=== PATIENT | male | born 1960 | race Caucasian/White ===

== ENCOUNTER → 2018-10-25 | Outpatient (CLI) | payer BC | END | disposition home or self-care (01) | LOC: CVU 15:34 | PROVIDERS: ATTEND Internal Medicine Cardiovascular Disease | DX: I35.1 Nonrheumatic aortic (valve) insufficiency (principal); I51.7 Cardiomegaly | CPT/HCPCS: 93306 ==

== ENCOUNTER → 2019-04-21 | Outpatient (CLI) | payer BC | END | disposition home or self-care (01) | LOC: CFH 08:43 | PROVIDERS: ATTEND Internal Medicine Cardiovascular Disease | DX: I35.1 Nonrheumatic aortic (valve) insufficiency (principal); I10 Essential (primary) hypertension; E78.5 Hyperlipidemia, unspecified | CPT/HCPCS: 93306 ==

== ENCOUNTER 2020-02-19 12:01 | Inpatient (IN) | payer BC ==
[~2020-02-19] VITALS: Ht 172.7 cm; Wt 75.0 kg
[2020-02-19] MEDS ORDERED: SODIUM CHLORIDE 0.9% 1,000ML IVBOLUS ONE (12:30)
[2020-02-19] MEDS ORDERED: ADENOSINE 6 MG/2 ML IVPush ONE ×2 (12:30)
[2020-02-19] MEDS ORDERED: SODIUM CHLORIDE FLUSH 10ML SYR IVF ONE (12:30)
[2020-02-19] MEDS ORDERED: DILTIAZEM 5 MG/ML, 5ML ONE ×2 (12:30→12:45)
[2020-02-19] MEDS ORDERED: DILTIAZEM 5 MG/ML, 5ML IV ONE (12:30)
[2020-02-19 12:39] LABS: BASOPHILS # (AUTO) 0.03 x10^3/uL (0-0.1); BASOPHILS % (AUTO) 1 % (0-1); EOSINOPHILS # (AUTO) 0.03 x10^3/uL (0-0.4); EOSINOPHILS % (AUTO) 0 % (1-7); LYMPHOCYTES # (AUTO) 1.37 x10^3/uL (1-3.4); LYMPHOCYTES % (AUTO) 20 % (22-44); MD NO; MEAN CORPUSCULAR HEMOGLOBIN 34.9 pg (27.5-34.5); MEAN CORPUSCULAR VOLUME 102.6 fL (81-97); MEAN PLATELET VOLUME 8.6 fL (7.4-10.4); MONOCYTES # (AUTO) 0.81 x10^3/uL (0.2-0.8); MONOCYTES % (AUTO) 12 % (2-9); NEUTROPHILS # (AUTO) 4.72 x10^3/uL (1.8-6.8); NEUTROPHILS % (AUTO) 68 % (42-75); PLATELET COUNT 197 x10^3/uL (130-400); RED BLOOD COUNT 4.19 x10^6/uL (4.38-5.82); RED CELL DISTRIBUTION WIDTH 13.3 % (9.4-14.8)
[2020-02-19 12:51] LABS: INTERNATIONAL NORMALIZED RATIO 1.09 (0.93-1.1); PROTHROMBIN TIME 11.2 Seconds (9.6-11.5)
[2020-02-19 12:53] LABS: ALBUMIN 4.2 g/dL (3.4-5.0); ANION GAP 10 mmol/L (5-15); CALCIUM 10.8 mg/dL (8.5-10.1); CHLORIDE 102 mmol/L (98-107)
[2020-02-19 12:56] LABS: ALANINE AMINOTRANSFERASE 88 U/L (12-78); ALKALINE PHOSPHATASE 60 U/L (45-117); BILIRUBIN,TOTAL 1.8 mg/dL (0.2-1.0); CREATININE 1.04 mg/dL (0.7-1.3); TOTAL PROTEIN 8.5 g/dL (6.4-8.2)
[2020-02-19] MEDS ORDERED: DILTIAZEM 5 MG/ML, 5ML IVPush ONE ×2 (13:00→13:30)
[2020-02-19] MEDS ORDERED: DILTIAZEM 60 MG TABLET PO ONE (13:00)
--- NOTE | 2020-02-19 13:08 | NUR ---
summary of events. pt taken to room via wheelchair. iv access obtained x 2. labs drawn from start. pt placed on all monitoring equipment with code cart at bedside. 6 mg adenosine given with no change. 12 mg adenosine given rhythm slowed and md was able to see flutter waves. 20 mg cardizem admin. hr slowed for approx 4 minutes before rising back up to 140-150. md made aware. 10 mg of cardizem admin iv and 60 mg po to be admin.
[2020-02-19] MEDS ORDERED: DILT120T PO (13:39)
[2020-02-19] MEDS ORDERED: ATOR10TA9 PO (13:39)
[2020-02-19] MEDS ORDERED: METO25TA35 PO (13:39)
[2020-02-19] MEDS ORDERED: OLME20TA17 PO (13:40)
[2020-02-19] MEDS: DILTIAZEM 125 MG in SODIUM CHLORIDE 0.9% 100 ML IV SCH ×2 (13:58→15:30)
--- NOTE | 2020-02-19 14:05 | NUR ---
in room to discuss poc. at this time it is determined the best poc is to admit pt. pt agrees with poc at this time. per md ok to initiate cardizem drip per order.
--- NOTE | 2020-02-19 14:52 | NUR ---
TASK RN: REPORT GIVEN TO SAIGE MEADE. PT RTG TO ROOM [id number]
[2020-02-19] MEDS ORDERED: ENOXAPARIN 40 MG/0.4 ML SQ SCH (15:00)
[2020-02-19] MEDS ORDERED: LABETALOL 5MG/ML, 20ML IVPush PRN (15:00)
[2020-02-19] MEDS ORDERED: DILTIAZEM 60 MG TABLET PO SCH (15:00)
[2020-02-19] MEDS ORDERED: ACETAMINOPHEN 325 MG TABLET PO PRN (15:00)
[2020-02-19] MEDS ORDERED: TEMAZEPAM 15 MG CAPSULE PO PRN (15:00)
[2020-02-19] MEDS ORDERED: ONDANSETRON 2MG/ML, 2ML IVPush PRN (15:00)
[2020-02-19] MEDS ORDERED: DOCUSATE 100 MG CAPSULE PO PRN (15:00)
[2020-02-19] MEDS ORDERED: HYDROcodone/APAP 5/325 TABLET PO PRN (15:00)
[2020-02-19] MEDS ORDERED: ENALAPRILAT 1.25 MG/ML, 2ML IVPush PRN (15:00)
[2020-02-19] MEDS ORDERED: morphine SULFATE 10 MG/ML, 1ML IVPush PRN (15:00)
[2020-02-19] MEDS ORDERED: ADENOSINE 6 MG/2 ML ONE (15:00)
[2020-02-19] MEDS ORDERED: HEPARIN 5,000 UNITS/ML, 1ML IV ONE ×2 (16:00)
[2020-02-19] MEDS ORDERED: HEPARIN 5,000 UNITS/ML, 1ML IV PRN ×2 (16:00)
[2020-02-19] MEDS ORDERED: HEPARIN 25,000 UNITS/250ML PMX 250 ML IV PRN ×2 (16:00)
[2020-02-19 18:06] VITALS: BP 141/72
[2020-02-19] MEDS ORDERED: ZOLPIDEM 5MG TABLET PO PRN (18:30)
[2020-02-19 19:11] VITALS: BP 105/65
[2020-02-19] MEDS ORDERED: ATORVASTATIN 10 MG TABLET PO SCH (21:00)
[2020-02-19] MEDS: METOPROLOL TARTRATE 25 MG TAB PO SCH (21:10)
[2020-02-19] MEDS ORDERED: MAGNESIUM SULFATE PMX 2GM/50ML 50 ML IV ONE (21:30)
[2020-02-20 01:29] VITALS: BP 109/61
[2020-02-20 05:29] LABS: CHLORIDE 106 mmol/L (98-107)
[2020-02-20 05:35] LABS: ALANINE AMINOTRANSFERASE 65 U/L (12-78); ALBUMIN 3.3 g/dL (3.4-5.0); ALKALINE PHOSPHATASE 43 U/L (45-117); ANION GAP 11 mmol/L (5-15); BILIRUBIN,TOTAL 1.7 mg/dL (0.2-1.0); CALCIUM 9.1 mg/dL (8.5-10.1); CREATININE 0.91 mg/dL (0.7-1.3); TOTAL PROTEIN 6.8 g/dL (6.4-8.2)
[2020-02-20 05:59] LABS: MEAN CORPUSCULAR HEMOGLOBIN 34.7 pg (27.5-34.5); MEAN CORPUSCULAR HGB CONC 33.6 g/dL (33.2-36.2); MEAN CORPUSCULAR VOLUME 103.3 fL (81-97); MEAN PLATELET VOLUME 8.6 fL (7.4-10.4); PLATELET COUNT 147 x10^3/uL (130-400); RED BLOOD COUNT 3.44 x10^6/uL (4.38-5.82); RED CELL DISTRIBUTION WIDTH 13.6 % (9.4-14.8)
[2020-02-20 06:24] LABS: BASOPHILS # (AUTO) 0.04 x10^3/uL (0-0.1); BASOPHILS % (AUTO) 1 % (0-1); EOSINOPHILS # (AUTO) 0.08 x10^3/uL (0-0.4); EOSINOPHILS % (AUTO) 2 % (1-7); LYMPHOCYTES # (AUTO) 2.21 x10^3/uL (1-3.4); LYMPHOCYTES % (AUTO) 43 % (22-44); MD SCAN; MONOCYTES # (AUTO) 0.74 x10^3/uL (0.2-0.8); MONOCYTES % (AUTO) 14 % (2-9); NEUTROPHILS # (AUTO) 2.13 x10^3/uL (1.8-6.8); NEUTROPHILS % (AUTO) 41 % (42-75)
[2020-02-20 07:50] VITALS: BP 111/67
[2020-02-20] MEDS ORDERED: DILTIAZEM HCL 120 MG PO SCH (09:00)
[2020-02-20] MEDS ORDERED: DILTIAZEM 60 MG TABLET PO SCH (09:00)
[2020-02-20] MEDS ORDERED: MAGNESIUM OXIDE 400 MG TABLET PO SCH (09:00)
[2020-02-20] MEDS ORDERED: LOSARTAN 100 MG TAB PO SCH (09:00)
[2020-02-20] MEDS ORDERED: METOPROLOL TARTRATE 25 MG TAB PO SCH ×2 (09:00→21:00)
[2020-02-20] MEDS: METOPROLOL TARTRATE 25 MG TAB PO SCH (09:07)
[2020-02-20] MEDS ORDERED: METOPROLOL TARTRATE 25 MG TAB ONE (10:59)
[2020-02-20] MEDS ORDERED: APIXABAN 5 MG TABLET ONE (10:59)
[2020-02-20] MEDS ORDERED: APIXABAN 5 MG TABLET PO SCH (11:00)
[2020-02-20] MEDS ORDERED: METOPROLOL TARTRATE 25 MG TAB PO ONE (11:00)
[2020-02-20] MEDS ORDERED: DILTIAZEM 125 MG in SODIUM CHLORIDE 0.9% 100 ML IV SCH (13:00)
[2020-02-20] MEDS ORDERED: METO25TA35 PO (14:26)
[2020-02-20] MEDS ORDERED: LOSA100T2 PO (14:26)
[2020-02-20] MEDS ORDERED: APIX5TAB PO (14:26)
[2020-02-20 15:00] VITALS: BP 116/80
[2020-02-20] MEDS ORDERED: DILT120C64 PO (16:02)
[2020-02-20 16:42] VITALS: BP 116/80
== END 2020-02-20 17:16 | disposition home or self-care (01) | DRG 309 ==
LOC: ED 12:47 → 5SO 15:12
PROVIDERS: ADMIT Internal Medicine; ATTEND Internal Medicine
PROC: 5A2204Z Restoration of Cardiac Rhythm, Single (ICD-10-PCS; principal; 2020-02-19)
DX: I48.92 Unspecified atrial flutter (principal); E87.1 Hypo-osmolality and hyponatremia; I44.1 Atrioventricular block, second degree; I10 Essential (primary) hypertension; E83.42 Hypomagnesemia; E83.52 Hypercalcemia; E86.0 Dehydration; I35.1 Nonrheumatic aortic (valve) insufficiency; I48.19 Other persistent atrial fibrillation; Z82.49 Family history of ischemic heart disease and other diseases of the circulatory system; Z88.2 Allergy status to sulfonamides
CPT/HCPCS: 36415; 71045; 80053; 83735; 84100; 84443; 85025; 85520; 85610; 85730; 93005; 93306; G0378; J0153; J1644; J3475; J7030

== ENCOUNTER → 2020-03-30 | Outpatient (CLI) | payer BC ==
[~2020-03-30] MED LIST: APIX5TAB PO; ATOR10TA9 PO; CETI10CA PO; CHOL10003 PO; DILT120C64 PO; DILT120T PO; ETAN50DI2 SC; FOLI0.4T2 PO; LOSA100T2 PO; MAGN300C PO; METH4TAB2 PO; METO25TA35 PO; NAPR-856 PO; OLME20TA17 PO; OMEG-118 PO; VITA1CAP PO; [UNRECOGNIZED DRUG - SUPPLY]
== END | disposition home or self-care (01) ==
LOC: STAR 09:31
PROVIDERS: ATTEND Anesthesiology
DX: Z01.812 Encounter for preprocedural laboratory examination (principal); Z20.828 Contact with and (suspected) exposure to other viral communicable diseases
CPT/HCPCS: 36415; 87635

== ENCOUNTER 2020-04-01 11:04 | Observation (INO) | payer BC ==
[~2020-04-01] VITALS: Ht 172.7 cm; Wt 79.5 kg
[~2020-04-01 11:04] MED LIST changes: -METH4TAB2 PO; -[UNRECOGNIZED DRUG - SUPPLY]
[2020-04-01 11:52] VITALS: BP 141/70
[2020-04-01] MEDS ORDERED: SODIUM CHLORIDE 0.9% 1,000 ML IV SCH (12:00)
[2020-04-01] MEDS ORDERED: SODIUM CHLORIDE 0.9% 1,000 ML IV ONE (12:00)
[2020-04-01] MEDS ORDERED: PLEASE ENTER HEIGHT AND WEIGHT MC SCH (12:00)
[2020-04-01] MEDS ORDERED: [UNRECOGNIZED DRUG - SUPPLY] (12:06)
[2020-04-01] MEDS ORDERED: METH4TAB2 PO (12:06)
[2020-04-01 12:17] LABS: BASOPHILS % (AUTO) 0 % (0-1); EOSINOPHILS % (AUTO) 0 % (1-7); LYMPHOCYTES % (AUTO) 8 % (22-44); MEAN CORPUSCULAR HEMOGLOBIN 33.6 pg (27.5-34.5); MEAN CORPUSCULAR HGB CONC 33.4 g/dL (33.2-36.2); MEAN PLATELET VOLUME 8.7 fL (7.4-10.4); MONOCYTES % (AUTO) 6 % (2-9); NEUTROPHILS % (AUTO) 87 % (42-75); PLATELET COUNT 246 x10^3/uL (130-400); RED BLOOD COUNT 4.29 x10^6/uL (4.38-5.82); RED CELL DISTRIBUTION WIDTH 12.8 % (9.4-14.8)
[2020-04-01 12:26] LABS: INTERNATIONAL NORMALIZED RATIO 1.09 (0.93-1.1); PROTHROMBIN TIME 11.2 Seconds (9.6-11.5)
[2020-04-01 12:27] LABS: ANION GAP 5 mmol/L (5-15); CALCIUM 9.8 mg/dL (8.5-10.1); CHLORIDE 102 mmol/L (98-107); CREATININE 1.07 mg/dL (0.7-1.3)
[2020-04-01] MEDS ORDERED: MIDAZOLAM 1 MG/ML, 2ML ONE (12:31)
[2020-04-01] MEDS ORDERED: FENTANYL PF 250 MCG/5ML ONE (12:31)
[2020-04-01] MEDS ORDERED: DEXAMETHASONE 4 MG/ML, 1ML ONE ×2 (12:35→14:33)
[2020-04-01] MEDS ORDERED: LIDOCAINE 2%, 20ML ONE (12:36)
[2020-04-01] MEDS ORDERED: SUCCINYLCHOLINE 20 MG/ML, 10ML ONE (12:43)
[2020-04-01 13:05] LABS: MD SCAN
[2020-04-01] MEDS ORDERED: EPHEDRINE 50 MG/ML, 1ML ONE (13:19)
[2020-04-01] MEDS ORDERED: ONDANSETRON 2MG/ML, 2ML ONE ×2 (14:33)
[2020-04-01] MEDS ORDERED: ROCURONIUM 10MG/ML,5ML ONE (14:33)
[2020-04-01] MEDS ORDERED: PROPOFOL 10 MG/ML, 20ML ONE (14:33)
[2020-04-01] MEDS ORDERED: ALBUTEROL SULFATE 2.5 MG/3 ML NPPB PRN (15:00)
[2020-04-01] MEDS ORDERED: DIAZEPAM 5 MG/ML, 2ML IVPush PRN (15:00)
[2020-04-01] MEDS ORDERED: PROMETHAZINE 25 MG/ML, 1ML IVPush PRN (15:00)
[2020-04-01] MEDS ORDERED: FENTANYL PF 100 MCG/2ML IV PRN (15:00)
[2020-04-01] MEDS ORDERED: ONDANSETRON 2MG/ML, 2ML IVPush PRN (15:00)
[2020-04-01] MEDS ORDERED: OXYcodone 5 MG/5 ML ORAL.SOL UDC PO PRN (15:00)
[2020-04-01] MEDS ORDERED: EPHEDRINE 50 MG/ML, 1ML IVPush PRN (15:00)
[2020-04-01] MEDS ORDERED: MEPERIDINE/PF 25MG/0.5ML IVPush PRN (15:00)
[2020-04-01] MEDS ORDERED: PROMETHAZINE 12.5 MG SUPP PR PRN (15:00)
[2020-04-01] MEDS ORDERED: ACETAMINOPHEN 325 MG TABLET PO PRN (15:00)
[2020-04-01] MEDS ORDERED: MIDAZOLAM 1 MG/ML, 2ML IV PRN (15:00)
[2020-04-01] MEDS ORDERED: DIPHENHYDRAMINE 50 MG/ML, 1ML IVPush PRN (15:00)
[2020-04-01] MEDS ORDERED: LABETALOL 5MG/ML, 20ML IV PRN (15:00)
[2020-04-01] MEDS ORDERED: HYDROmorphone 1 MG/ML, 1ML INJ IVPush PRN (15:00)
[2020-04-01] MEDS ORDERED: hydrALAzine 20 MG/ML, 1ML IV PRN (15:00)
[2020-04-01] MEDS ORDERED: APIXABAN 5 MG TABLET PO SCH (15:14)
[2020-04-01 19:38] VITALS: BP 122/72
== END 2020-04-01 21:23 | disposition home or self-care (01) ==
LOC: CACL 11:04 → ORIP 14:42 → CACL 14:42 → 5SO 15:46
PROVIDERS: ADMIT Internal Medicine Clinical Cardiac Electrophysiology; ATTEND Internal Medicine Clinical Cardiac Electrophysiology
DX: I48.92 Unspecified atrial flutter (principal); Z20.828 Contact with and (suspected) exposure to other viral communicable diseases; I48.0 Paroxysmal atrial fibrillation; I10 Essential (primary) hypertension; E78.5 Hyperlipidemia, unspecified; I35.8 Other nonrheumatic aortic valve disorders; M45.9 Ankylosing spondylitis of unspecified sites in spine; Z79.899 Other long term (current) drug therapy; Z79.01 Long term (current) use of anticoagulants; Z79.82 Long term (current) use of aspirin
CPT/HCPCS: 36415; 80048; 85025; 85610; 85730; 87635; 93005; 93312; 93321; 93325; 93613; 93653; C1730; C1732; C1894; G0378; J0330; J1100; J2250; J2405; J2704; J3010; J3490

== ENCOUNTER 2020-06-23 09:48 | Day surgery (SDC) | payer BC ==
[~2020-06-23] VITALS: Ht 172.7 cm; Wt 74.1 kg
[~2020-06-23 09:48] MED LIST changes: +METH4TAB2 PO; +[UNRECOGNIZED DRUG - SUPPLY]
[2020-06-23] MEDS ORDERED: SODIUM CHLORIDE 0.9% 1,000 ML IV SCH ×2 (10:00→12:30)
[2020-06-23 10:02] VITALS: BP 153/72
[2020-06-23] MEDS ORDERED: ZINC50TA10 PO (10:21)
[2020-06-23 10:48] LABS: BASOPHILS % (AUTO) 1 % (0-1); EOSINOPHILS % (AUTO) 1 % (1-7); LYMPHOCYTES % (AUTO) 35 % (22-44); MEAN CORPUSCULAR HEMOGLOBIN 33.8 pg (27.5-34.5); MEAN CORPUSCULAR HGB CONC 34.2 g/dL (33.2-36.2); MEAN PLATELET VOLUME 9.4 fL (7.4-10.4); MONOCYTES % (AUTO) 16 % (2-9); NEUTROPHILS % (AUTO) 47 % (42-75); PLATELET COUNT 172 x10^3/uL (130-400); RED BLOOD COUNT 4.45 x10^6/uL (4.38-5.82); RED CELL DISTRIBUTION WIDTH 12.3 % (9.4-14.8)
[2020-06-23 10:49] LABS: MD NO
[2020-06-23 10:54] LABS: ANION GAP 5 mmol/L (5-15); CALCIUM 9.7 mg/dL (8.5-10.1); CHLORIDE 105 mmol/L (98-107); CREATININE 1.04 mg/dL (0.7-1.3)
[2020-06-23] MEDS ORDERED: TICAGRELOR 90 MG TABLET ONE (11:19)
[2020-06-23] MEDS ORDERED: MIDAZOLAM 1 MG/ML, 5ML ONE (11:19)
[2020-06-23] MEDS ORDERED: FENTANYL PF 100 MCG/2ML ONE (11:19)
[2020-06-23] MEDS ORDERED: VERAPAMIL 2.5 MG/ML, 2ML ONE (11:20)
[2020-06-23] MEDS ORDERED: LIDOCAINE 2%, 20ML ONE (11:20)
[2020-06-23] MEDS ORDERED: BIVALIRUDIN 250 MG ONE (11:20)
[2020-06-23] MEDS ORDERED: HEPARIN 1,000 UNITS/ML, 10ML ONE (11:20)
== END 2020-06-23 13:21 | disposition home or self-care (01) ==
LOC: CACL 09:48
PROVIDERS: ATTEND Internal Medicine Cardiovascular Disease
DX: I35.1 Nonrheumatic aortic (valve) insufficiency (principal); I10 Essential (primary) hypertension; E78.5 Hyperlipidemia, unspecified; I48.92 Unspecified atrial flutter; I48.91 Unspecified atrial fibrillation; M45.9 Ankylosing spondylitis of unspecified sites in spine; Z88.1 Allergy status to other antibiotic agents; Z88.2 Allergy status to sulfonamides; Z79.899 Other long term (current) drug therapy; Z79.01 Long term (current) use of anticoagulants; Z72.89 Other problems related to lifestyle; Z98.890 Other specified postprocedural states; Z82.49 Family history of ischemic heart disease and other diseases of the circulatory system; Z80.3 Family history of malignant neoplasm of breast
CPT/HCPCS: 36415; 80048; 85025; 93458; 93567; 99156; 99157; C1769; C1894; J1644; J2250; J3010; Q9967; J0583

== ENCOUNTER → 2020-07-12 | Outpatient (CLI) | payer BC ==
[~2020-07-12] MED LIST changes: +ZINC50TA10 PO
== END | disposition home or self-care (01) ==
LOC: CLISVCS 10:19
PROVIDERS: ATTEND Anesthesiology
DX: Z20.822 Contact with and (suspected) exposure to COVID-19 (principal)
CPT/HCPCS: 87635

== ENCOUNTER 2020-07-15 11:35 | Inpatient (IN) | payer BC ==
[~2020-07-15] VITALS: Ht 172.7 cm; Wt 82.0 kg
[2020-07-15 12:12] LABS: MICROSCOPIC NOT IND
[2020-07-15] MEDS ORDERED: APIX5TAB PO (13:34)
[2020-07-15] MEDS ORDERED: METO50TA82 PO (13:34)
[2020-07-15 13:54] LABS: BASOPHILS % (AUTO) 1 % (0-1); EOSINOPHILS % (AUTO) 0 % (1-7); LYMPHOCYTES % (AUTO) 27 % (22-44); MEAN CORPUSCULAR HEMOGLOBIN 33.3 pg (27.5-34.5); MEAN CORPUSCULAR HGB CONC 34.5 g/dL (33.2-36.2); MEAN PLATELET VOLUME 8.6 fL (7.4-10.4); MONOCYTES % (AUTO) 15 % (2-9); NEUTROPHILS % (AUTO) 58 % (42-75); PLATELET COUNT 191 x10^3/uL (130-400); RED BLOOD COUNT 4.23 x10^6/uL (4.38-5.82); RED CELL DISTRIBUTION WIDTH 12.2 % (9.4-14.8)
[2020-07-15 13:55] LABS: MD NO
[2020-07-15 14:07] LABS: ALANINE AMINOTRANSFERASE 25 U/L (12-78); ALBUMIN 3.9 g/dL (3.4-5.0); ANION GAP 6 mmol/L (5-15); CALCIUM 9.3 mg/dL (8.5-10.1); CHLORIDE 104 mmol/L (98-107); CREATININE 1.02 mg/dL (0.7-1.3)
[2020-07-15 14:09] LABS: ALKALINE PHOSPHATASE 68 U/L (45-117)
[2020-07-15 14:11] LABS: INTERNATIONAL NORMALIZED RATIO 1.1 (0.93-1.1); PROTHROMBIN TIME 11.7 Seconds (9.6-11.5)
[2020-07-16 04:48] VITALS: BP_SYST 157; BP_SYST 162; BP_DIAS 77; BP_DIAS 81
[2020-07-16] MEDS ORDERED: INSULIN LISPRO 100 UNITS/ML, PEN SQ-INSULIN SCH (05:00)
[2020-07-16] MEDS ORDERED: CHLORHEXIDINE 15 ML UDC MM SCH (05:00)
[2020-07-16] MEDS ORDERED: DO NOT GIVE MC SCH (05:00)
[2020-07-16] MEDS ORDERED: MUPIROCIN OINT 2%, 22GM ONE (05:06)
[2020-07-16] MEDS ORDERED: MIDAZOLAM 10MG/2 ML ONE (07:06)
[2020-07-16] MEDS ORDERED: FENTANYL PF 250 MCG/5ML ONE ×5 (07:06→09:52)
[2020-07-16] MEDS ORDERED: PROTAMINE SULFATE 10 MG/ML, 25ML ONE (07:18)
[2020-07-16] MEDS ORDERED: PHENYLEPHRINE 50 MG in SODIUM CHLORIDE 0.9% 245 ML IV PRN ×2 (07:30→12:00)
[2020-07-16] MEDS ORDERED: MANNITOL PMX 20% 500 ML IVPB PRN (07:30)
[2020-07-16] MEDS ORDERED: VANCOMYCIN 1,200 MG in SODIUM CHLORIDE 0.9% 250 ML IV PRN (07:30)
[2020-07-16] MEDS ORDERED: ALBUMIN HUMAN 5% 500 ML IV PRN (07:30)
[2020-07-16] MEDS ORDERED: EPINEPHRINE 5 MG in SODIUM CHLORIDE 0.9% 245 ML IV PRN ×2 (07:30→12:00)
[2020-07-16] MEDS ORDERED: POTASSIUM CHLORIDE 80 MEQ, SODIUM BICARBONATE 8.4% 10 MEQ, MAGNESIUM SULFATE 0.5 GM, LI... IV PRN (07:30)
[2020-07-16] MEDS ORDERED: DEXMEDETOMIDINE 200 MCG in SODIUM CHLORIDE 0.9% 48 ML IV PRN ×3 (07:30→14:00)
[2020-07-16] MEDS ORDERED: REGULAR INSULIN 100 UNITS in SODIUM CHLORIDE 0.9% 99 ML IV PRN ×2 (07:30→12:00)
[2020-07-16] MEDS ORDERED: CEFUROXIME 1.5 GM in SODIUM CHLORIDE 0.9% 50 ML IVPB PRN (07:30)
[2020-07-16] MEDS ORDERED: MUPIROCIN OINT 2%, 22GM TP SCH (09:00)
[2020-07-16] MEDS ORDERED: SODIUM CHLORIDE FLUSH 10ML SYR IVF SCH (09:00)
[2020-07-16] MEDS ORDERED: AMINOCAPROIC ACID 250 MG/ML, 20ML ONE ×2 (09:05)
[2020-07-16] MEDS ORDERED: ROCURONIUM 10MG/ML,5ML ONE ×2 (09:06)
[2020-07-16] MEDS ORDERED: PROPOFOL 10 MG/ML, 20ML ONE (09:06)
[2020-07-16] MEDS ORDERED: AMIODARONE 50 MG/ML, 3ML ONE ×2 (10:18)
[2020-07-16] MEDS ORDERED: methylPREDNISolone SOD SUCC 125 MG/2 ML ONE (11:38)
[2020-07-16] MEDS ORDERED: HEPARIN 1,000 UNITS/ML, 30ML ONE (11:38)
[2020-07-16] MEDS ORDERED: LIDOCAINE-MPF 2% ,5ML ONE (11:38)
[2020-07-16] MEDS ORDERED: SODIUM BICARBONATE 1 MEQ/ML, 50ML VIAL ONE (11:38)
[2020-07-16] MEDS ORDERED: ALBUMIN HUMAN 25% 50 ML ONE (11:39)
[2020-07-16 11:56] LABS: GLUCOSE BY BLOOD GAS ANALYZER 126 mg/dL (70-110); HEMOGLOBIN BY BLOOD GAS ANALYZ 12.3 g/dL (14.0-18.0); POTASSIUM BY BLOOD GAS ANALYZR 3.8 mmol/L (3.6-5.5)
[2020-07-16] MEDS ORDERED: OXYcodone IR 5MG TABLET PO PRN (12:00)
[2020-07-16] MEDS ORDERED: SODIUM CHLORIDE 0.9% 1,000 ML IV PRN (12:00)
[2020-07-16] MEDS ORDERED: ONDANSETRON 2MG/ML, 2ML IVPush PRN (12:00)
[2020-07-16] MEDS ORDERED: ACETAMINOPHEN 650 MG SUPP PR PRN (12:00)
[2020-07-16] MEDS ORDERED: SODIUM BICARB 8.4%, 50ML SYRINGE IV PRN (12:00)
[2020-07-16] MEDS: KSCALE TO 4.5 IV SCH ×2 (12:00→18:00)
[2020-07-16] MEDS ORDERED: PROCHLORPERAZINE 5 MG/ML, 2ML IVPush PRN (12:00)
[2020-07-16] MEDS ORDERED: BISACODYL 10 MG SUPP PR PRN (12:00)
[2020-07-16] MEDS ORDERED: VASOPRESSIN 20 UNIT in SODIUM CHLORIDE 0.9% 99 ML IV PRN (12:00)
[2020-07-16] MEDS ORDERED: NITROGLYCERIN/D5W PMX 250 ML IV PRN (12:00)
[2020-07-16] MEDS ORDERED: BISACODYL 5 MG EC TABLET PO PRN (12:00)
[2020-07-16] MEDS ORDERED: DOBUTAMINE 250 MG in SODIUM CHLORIDE 0.9% 230 ML IV PRN (12:00)
[2020-07-16 12:10] LABS: INTERNATIONAL NORMALIZED RATIO 1.51 (0.93-1.1)
[2020-07-16] MEDS ORDERED: MORPHINE SULFATE 4 MG/ML, 1ML ONE (12:18)
[2020-07-16] MEDS ORDERED: POTASSIUM CHLORIDE PMX 100 ML IV ONE (12:30)
[2020-07-16 12:41] LABS: FIO2 60 %
[2020-07-16] MEDS: MAGNESIUM SULFATE 1 GM in SODIUM CHLORIDE 0.9% 100 ML IVPB SCH (12:43)
[2020-07-16] MEDS ORDERED: MORPHINE SULFATE 4 MG/ML, 1ML IVPush ONE (13:00)
[2020-07-16] MEDS: LACTATED RINGERS 1,000 ML IV PRN ×2 (13:18→14:08)
[2020-07-16] MEDS: FENTANYL PF 100 MCG/2ML IVPush PRN ×2 (14:32→17:07)
[2020-07-16] MEDS: INSULIN LISPRO 100 UNITS/ML, PEN SQ-INSULIN SCH ×4 (15:56→23:40)
[2020-07-16] MEDS: HYDROcodone/APAP 5/325 TABLET PO PRN ×2 (18:14→22:28)
[2020-07-16 18:37] VITALS: BP 100/67
[2020-07-16] MEDS: MUPIROCIN OINT 2%, 22GM NAS SCH (20:55)
[2020-07-16] MEDS: CEFUROXIME 1.5 GM in SODIUM CHLORIDE 0.9% 50 ML IVPB SCH (20:55)
[2020-07-16] MEDS: VANCOMYCIN 1,200 MG in SODIUM CHLORIDE 0.9% 250 ML IV SCH (21:30)
[2020-07-17] MEDS: KSCALE TO 4.5 IV SCH ×2 (00:05→05:30)
[2020-07-17] MEDS: HYDROcodone/APAP 5/325 TABLET PO PRN ×4 (04:03→21:20)
[2020-07-17 05:23] LABS: BASOPHILS % (AUTO) 0 % (0-1); EOSINOPHILS % (AUTO) 0 % (1-7); LYMPHOCYTES % (AUTO) 4 % (22-44); MEAN CORPUSCULAR HEMOGLOBIN 33.3 pg (27.5-34.5); MEAN CORPUSCULAR HGB CONC 34.2 g/dL (33.2-36.2); MONOCYTES % (AUTO) 9 % (2-9); NEUTROPHILS % (AUTO) 87 % (42-75); PLATELET COUNT 126 x10^3/uL (130-400); RED BLOOD COUNT 3.36 x10^6/uL (4.38-5.82); RED CELL DISTRIBUTION WIDTH 12.4 % (9.4-14.8)
[2020-07-17 05:26] LABS: MD NO
[2020-07-17 05:31] LABS: ANION GAP 10 mmol/L (5-15); CHLORIDE 110 mmol/L (98-107); CREATININE 0.94 mg/dL (0.7-1.3)
[2020-07-17 05:35] LABS: INTERNATIONAL NORMALIZED RATIO 1.11 (0.93-1.1); PROTHROMBIN TIME 11.9 Seconds (9.6-11.5)
[2020-07-17] MEDS: INSULIN LISPRO 100 UNITS/ML, PEN SQ-INSULIN SCH ×4 (05:54→21:19)
[2020-07-17] MEDS: CEFUROXIME 1.5 GM in SODIUM CHLORIDE 0.9% 50 ML IVPB SCH (07:54)
[2020-07-17] MEDS: MUPIROCIN OINT 2%, 22GM NAS SCH ×2 (08:06→21:19)
[2020-07-17] MEDS: ASPIRIN 81 MG TABLET EC PO SCH (08:06)
[2020-07-17] MEDS: VANCOMYCIN 1,200 MG in SODIUM CHLORIDE 0.9% 250 ML IV SCH (09:11)
[2020-07-17] MEDS ORDERED: FUROSEMIDE 40 MG/4 ML ONE (09:17)
[2020-07-17] MEDS: MAGNESIUM SULFATE 1 GM in SODIUM CHLORIDE 0.9% 100 ML IVPB SCH (13:08)
[2020-07-17 16:10] VITALS: BP 155/99
[2020-07-17 20:56] VITALS: BP 137/91
[2020-07-17] MEDS: CHLORHEXIDINE 15 ML UDC MM SCH (21:19)
[2020-07-18 02:33] VITALS: BP 148/99
[2020-07-18] MEDS: HYDROcodone/APAP 5/325 TABLET PO PRN ×3 (04:55→17:41)
[2020-07-18 05:41] LABS: BASOPHILS % (AUTO) 0 % (0-1); EOSINOPHILS % (AUTO) 0 % (1-7); INTERNATIONAL NORMALIZED RATIO 1.02 (0.93-1.1); LYMPHOCYTES % (AUTO) 9 % (22-44); MEAN CORPUSCULAR HEMOGLOBIN 33.4 pg (27.5-34.5); MEAN CORPUSCULAR HGB CONC 34.4 g/dL (33.2-36.2); MEAN PLATELET VOLUME 9.2 fL (7.4-10.4); MONOCYTES % (AUTO) 9 % (2-9); NEUTROPHILS % (AUTO) 81 % (42-75); PLATELET COUNT 132 x10^3/uL (130-400); PROTHROMBIN TIME 10.9 Seconds (9.6-11.5); RED BLOOD COUNT 3.41 x10^6/uL (4.38-5.82); RED CELL DISTRIBUTION WIDTH 12.4 % (9.4-14.8)
[2020-07-18 05:43] LABS: ANION GAP 6 mmol/L (5-15); CALCIUM 8.8 mg/dL (8.5-10.1); CHLORIDE 101 mmol/L (98-107)
[2020-07-18 05:44] LABS: CREATININE 1.07 mg/dL (0.7-1.3)
[2020-07-18 06:47] LABS: MD SCAN
[2020-07-18] MEDS: INSULIN LISPRO 100 UNITS/ML, PEN SQ-INSULIN SCH ×4 (07:00→20:45)
[2020-07-18 07:16] VITALS: BP 134/88
[2020-07-18] MEDS: FUROSEMIDE 40 MG/4 ML IV SCH (07:42)
[2020-07-18] MEDS: CHLORHEXIDINE 15 ML UDC MM SCH ×2 (07:43→20:45)
[2020-07-18] MEDS: ACETAMINOPHEN 325 MG TABLET PO PRN (07:43)
[2020-07-18] MEDS: ASPIRIN 81 MG TABLET EC PO SCH (07:43)
[2020-07-18] MEDS: POTASSIUM CHLORIDE 20 MEQ PACKET PO SCH (07:49)
[2020-07-18] MEDS: MUPIROCIN OINT 2%, 22GM NAS SCH ×2 (07:49→20:36)
[2020-07-18] MEDS: MAGNESIUM SULFATE 1 GM in SODIUM CHLORIDE 0.9% 100 ML IVPB SCH (11:37)
[2020-07-18 13:35] VITALS: BP 127/85
[2020-07-18 19:20] VITALS: BP 144/98
[2020-07-18] MEDS: HYDROcodone/APAP 10/325 MG TABLET PO PRN (20:36)
[2020-07-18] MEDS ORDERED: LOSARTAN 25MG TABLET PO SCH (21:00)
[2020-07-19 00:44] VITALS: BP 132/90
[2020-07-19] MEDS: HYDROcodone/APAP 10/325 MG TABLET PO PRN (04:57)
[2020-07-19 05:35] LABS: ANION GAP 6 mmol/L (5-15); CALCIUM 8.6 mg/dL (8.5-10.1); CHLORIDE 101 mmol/L (98-107)
[2020-07-19 05:37] LABS: CREATININE 0.74 mg/dL (0.7-1.3)
[2020-07-19 05:43] LABS: BASOPHILS % (AUTO) 0 % (0-1); EOSINOPHILS % (AUTO) 0 % (1-7); LYMPHOCYTES % (AUTO) 15 % (22-44); MEAN CORPUSCULAR HEMOGLOBIN 34.1 pg (27.5-34.5); MEAN CORPUSCULAR HGB CONC 35.3 g/dL (33.2-36.2); MEAN PLATELET VOLUME 9.1 fL (7.4-10.4); MONOCYTES % (AUTO) 11 % (2-9); NEUTROPHILS % (AUTO) 74 % (42-75); PLATELET COUNT 96 x10^3/uL (130-400); RED BLOOD COUNT 2.99 x10^6/uL (4.38-5.82); RED CELL DISTRIBUTION WIDTH 12.4 % (9.4-14.8)
[2020-07-19 06:04] LABS: MD NO
[2020-07-19 06:52] VITALS: BP 150/96
[2020-07-19] MEDS: INSULIN LISPRO 100 UNITS/ML, PEN SQ-INSULIN SCH (06:57)
[2020-07-19] MEDS: CHLORHEXIDINE 15 ML UDC MM SCH (08:01)
[2020-07-19] MEDS: ASPIRIN 81 MG TABLET EC PO SCH (08:01)
[2020-07-19] MEDS: POTASSIUM CHLORIDE 20 MEQ PACKET PO SCH (08:02)
[2020-07-19] MEDS: FUROSEMIDE 40 MG/4 ML IV SCH (08:02)
[2020-07-19] MEDS: MUPIROCIN OINT 2%, 22GM NAS SCH ×2 (08:03→20:34)
[2020-07-19] MEDS ORDERED: AMIODARONE 150 MG in DEXTROSE 5% 100 ML IV ONE ×2 (09:30→11:30)
[2020-07-19] MEDS ORDERED: FILTER 0.22 MICRON FOR AMIODARONE IV PRN (09:30)
[2020-07-19] MEDS: AMIODARONE 450 MG in DEXTROSE 5% 241 ML IV PRN ×2 (09:45→16:32)
[2020-07-19] MEDS ORDERED: METOPROLOL TARTRATE 50 MG TAB ONE (09:49)
[2020-07-19] MEDS: METOPROLOL TARTRATE 50 MG TAB PO SCH ×2 (09:50→20:34)
[2020-07-19] MEDS ORDERED: TEMPLATE NON-FORMULARY MED. (Olmesartan Medoxomil** (Benicar**) 20 MG) PO SCH (10:00)
[2020-07-19 12:16] VITALS: BP 114/71
[2020-07-19] MEDS: HYDROcodone/APAP 5/325 TABLET PO PRN (16:39)
[2020-07-19 20:33] VITALS: BP 134/94
[2020-07-19] MEDS: ATORVASTATIN 10 MG TABLET PO SCH (20:34)
[2020-07-20 00:13] VITALS: BP 136/90
[2020-07-20] MEDS: HYDROcodone/APAP 10/325 MG TABLET PO PRN ×4 (00:14→21:03)
[2020-07-20] MEDS: AMIODARONE 450 MG in DEXTROSE 5% 241 ML IV PRN (04:40)
[2020-07-20 06:05] LABS: BASOPHILS % (AUTO) 0 % (0-1); EOSINOPHILS % (AUTO) 1 % (1-7); LYMPHOCYTES % (AUTO) 23 % (22-44); MEAN CORPUSCULAR HEMOGLOBIN 33.6 pg (27.5-34.5); MEAN CORPUSCULAR HGB CONC 34.9 g/dL (33.2-36.2); MONOCYTES % (AUTO) 14 % (2-9); NEUTROPHILS % (AUTO) 62 % (42-75); PLATELET COUNT 119 x10^3/uL (130-400); RED CELL DISTRIBUTION WIDTH 12.2 % (9.4-14.8)
[2020-07-20 06:10] LABS: MD NO
[2020-07-20 06:12] LABS: CHLORIDE 100 mmol/L (98-107)
[2020-07-20 06:19] LABS: ANION GAP 5 mmol/L (5-15); CALCIUM 9.4 mg/dL (8.5-10.1); CREATININE 0.77 mg/dL (0.7-1.3)
[2020-07-20 07:13] VITALS: BP 131/86
[2020-07-20] MEDS: FUROSEMIDE 40 MG/4 ML IV SCH (09:28)
[2020-07-20] MEDS: POTASSIUM CHLORIDE 20 MEQ PACKET PO SCH (09:28)
[2020-07-20] MEDS: ASPIRIN 81 MG TABLET EC PO SCH (09:28)
[2020-07-20] MEDS: APIXABAN 5 MG TABLET PO SCH ×2 (09:28→21:02)
[2020-07-20] MEDS: MUPIROCIN OINT 2%, 22GM NAS SCH ×2 (09:28→21:02)
[2020-07-20] MEDS: LOSARTAN 100 MG TAB PO SCH (09:28)
[2020-07-20] MEDS: METOPROLOL TARTRATE 50 MG TAB PO SCH ×2 (09:29→21:02)
[2020-07-20 10:28] VITALS: BP 120/86
[2020-07-20] MEDS: AMIODARONE 200 MG TABLET PO SCH ×2 (10:33→21:02)
[2020-07-20] MEDS: MAGNESIUM OXIDE 400 MG TABLET PO SCH (10:33)
[2020-07-20 14:02] VITALS: BP 115/79
[2020-07-20] MEDS: ACETAMINOPHEN 325 MG TABLET PO PRN (15:44)
[2020-07-20] MEDS: ATORVASTATIN 10 MG TABLET PO SCH (21:02)
[2020-07-20 21:08] VITALS: BP 123/82
[2020-07-21 02:16] VITALS: BP 112/79
[2020-07-21] MEDS: HYDROcodone/APAP 10/325 MG TABLET PO PRN ×2 (02:17→09:12)
[2020-07-21 02:34] LABS: BASOPHILS % (AUTO) 0 % (0-1); EOSINOPHILS % (AUTO) 2 % (1-7); LYMPHOCYTES % (AUTO) 30 % (22-44); MEAN CORPUSCULAR HEMOGLOBIN 33.4 pg (27.5-34.5); MEAN CORPUSCULAR HGB CONC 34.9 g/dL (33.2-36.2); MEAN PLATELET VOLUME 8.5 fL (7.4-10.4); MONOCYTES % (AUTO) 13 % (2-9); NEUTROPHILS % (AUTO) 54 % (42-75); PLATELET COUNT 149 x10^3/uL (130-400); RED BLOOD COUNT 3.23 x10^6/uL (4.38-5.82); RED CELL DISTRIBUTION WIDTH 12.5 % (9.4-14.8)
[2020-07-21 02:39] LABS: MD NO
[2020-07-21 02:44] LABS: ANION GAP 5 mmol/L (5-15); CHLORIDE 98 mmol/L (98-107); CREATININE 0.87 mg/dL (0.7-1.3)
[2020-07-21 08:05] VITALS: BP 118/83
[2020-07-21] MEDS: AMIODARONE 200 MG TABLET PO SCH (09:10)
[2020-07-21] MEDS: POTASSIUM CHLORIDE 20 MEQ PACKET PO SCH (09:10)
[2020-07-21] MEDS: LOSARTAN 100 MG TAB PO SCH (09:11)
[2020-07-21] MEDS: METOPROLOL TARTRATE 50 MG TAB PO SCH (09:11)
[2020-07-21] MEDS: FUROSEMIDE 40 MG/4 ML IV SCH (09:11)
[2020-07-21] MEDS: MAGNESIUM OXIDE 400 MG TABLET PO SCH (09:11)
[2020-07-21] MEDS: ASPIRIN 81 MG TABLET EC PO SCH (09:11)
[2020-07-21] MEDS: APIXABAN 5 MG TABLET PO SCH (09:11)
[2020-07-21] MEDS: MUPIROCIN OINT 2%, 22GM NAS SCH (09:12)
[2020-07-21] MEDS ORDERED: ASPI81TA45 PO (09:22)
[2020-07-21] MEDS ORDERED: POTA20TA6 PO (09:22)
[2020-07-21] MEDS ORDERED: AMIO200T42 PO (09:22)
[2020-07-21] MEDS ORDERED: HYDR-1067 PO (09:22)
[2020-07-21] MEDS ORDERED: FURO40TA6 PO (09:22)
== END 2020-07-21 11:49 | disposition home or self-care (01) | DRG 220 ==
LOC: UNDOADMIN 11:35 → EDIP 11:35 → 5SO 07-16 04:28 → CCU 07-16 09:31 → 5SO 07-17 16:13 → DCLOUNGE 07-21 11:36
PROVIDERS: ADMIT Thoracic Surgery (Cardiothoracic Vascular Surgery); ATTEND Internal Medicine
PROC: 02L70ZK Occlusion of Left Atrial Appendage, Open Approach (ICD-10-PCS; 2020-07-16)
PROC: B24BZZ4 Ultrasonography of Heart with Aorta, Transesophageal (ICD-10-PCS; 2020-07-16)
PROC: 5A1221Z Performance of Cardiac Output, Continuous (ICD-10-PCS; 2020-07-16)
PROC: 02RF0JZ Replacement of Aortic Valve with Synthetic Substitute, Open Approach (ICD-10-PCS; principal; 2020-07-16 07:30)
DX: I35.1 Nonrheumatic aortic (valve) insufficiency (principal); I48.92 Unspecified atrial flutter; I50.42 Chronic combined systolic (congestive) and diastolic (congestive) heart failure; I42.0 Dilated cardiomyopathy; I44.2 Atrioventricular block, complete; I11.0 Hypertensive heart disease with heart failure; I48.91 Unspecified atrial fibrillation; M45.9 Ankylosing spondylitis of unspecified sites in spine; E78.5 Hyperlipidemia, unspecified; Z79.899 Other long term (current) drug therapy
CPT/HCPCS: 36415; 36600; J3490; S0017; 71045; 71046; 80048; 80053; 81003; 82040; 82330; 82800; 82803; 82810; 82947; 82962; 83036; 83735; 84132; 84295; 85014; 85018; 85025; 85049; 85347; 85610; 85730; 86850; 86900; 86923; 87081; 88305; 93005; 93312; 93321; 93325; 93880; 94002; C1768; G0378; J0171; J0697; J1644; J1815; J1940; J2250; J2405; J2704; J2720; J3010; J3370; J3475; J3480; J7060; P9045; P9047; C1751; C1760; C2618; J0282; J2270; J2370; J2930; J7050; J7120

== ENCOUNTER → 2020-09-14 | Outpatient (CLI) | payer BC ==
[~2020-09-14] MED LIST changes: +AMIO200T42 PO; +ASPI81TA45 PO; -FOLI0.4T2 PO; +FOLI0.4T5 PO; +FURO40TA6 PO; +HYDR-1067 PO; +METO50TA82 PO; +POTA20TA6 PO
== END | disposition home or self-care (01) ==
LOC: CFH 10:02
PROVIDERS: ATTEND Internal Medicine Cardiovascular Disease
DX: I08.8 Other rheumatic multiple valve diseases (principal); I27.20 Pulmonary hypertension, unspecified
CPT/HCPCS: 93306